=== PATIENT | female | born 1995 | race Two or more races ===

== ENCOUNTER 2018-07-09 08:38 | Outpatient (CLI) | payer OTHER ==
--- NOTE | 2018-07-09 15:05 | MRI Report ---
Reason: SLEEP DISORDER,MIGRAINE,NAUSEA,UNSPECIFIED CONVULS Procedure Date: 07/09/2018 Accession Number: [id number] / [id number] Procedure: MRI - Brain W/O CPT Code: FULL RESULT: EXAM: MRI BRAIN WITHOUT CONTRAST EXAM DATE: 07/09/2018 09:44 AM. CLINICAL HISTORY: SLEEP DISORDER,MIGRAINE,NAUSEA. COMPARISON: None. TECHNIQUE: Multiplanar, multisequence T1-weighted and fluid-sensitive MR sequences of the brain were performed. Sequences optimized for routine evaluation. Other: None. IV Contrast: None. FINDINGS: Brain Volume: Normal for age. Parenchyma/Dura: No mass, acute infarct or hemorrhage. No white matter lesions identified. Ventricles/Cisterns: No hydrocephalus. No abnormal extra-axial fluid collection or hemorrhage. Orbits: Symmetric and unremarkable. Sella Turcica: Unremarkable. IAC: Symmetric and unremarkable. Vasculature: Normal signal flow void is seen in the major arterial structures at the skull base. Sinuses: No acute appearing sinus disease. Bones: No focal pathologic appearing marrow signal changes. Other: None. IMPRESSION: 1. Normal brain MRI. [facility]
== END 2018-07-09 08:39 | disposition home or self-care (01) ==
LOC: DI 08:38
PROVIDERS: ATTEND Family Medicine
DX: G43.909 Migraine, unspecified, not intractable, without status migrainosus (principal); G47.9 Sleep disorder, unspecified; R11.0 Nausea; R56.9 Unspecified convulsions
CPT/HCPCS: 70551

== ENCOUNTER 2021-04-21 11:05 | Outpatient (CLI) | payer OTHER ==
[2021-04-21 11:51] VITALS: BP 91/64
--- NOTE | 2021-04-21 11:51 | SLEEP CARE CONSULTATION ---
Information from patient questionnaire entered by Nuvia Cherry. I have reviewed and concur with the information entered by Nuvia Cherry. This document represents the service I personally performed and the decisions made by me, Radha Perez ARNP. History of Present Illness Service Date and Time: 04/21/2021 1105 Reason for Visit: New patient Chief Complaint: reports: Insomnia, Unrefreshed sleep, Snoring, Excessive daytime sleepiness, Fatigue, Frequent awakenings at night Date of Onset: since 2012 Usual bedtime: 830 PM Time it takes to fall asleep: hours Snores at night: Yes (usually) Observed to quit breathing while asleep: No Sleeps alone due to snoring: No Number of times waking at night: several Reasons for waking at night: reports: Gasping for air, Pain, Other (noise, nightmares, bad feelings, thirsty, unknown reason) Toss, Turn, or Twitch while sleeping: Yes Recalls having dreams: Yes (50/50) Usually gets out of bed at: 3:30 - 4 am Feels refreshed in the morning: No Morning headache: Yes (meds needed; majority of days; hx of migraines) Sleepy or fatigued during the day: Yes Ever fallen asleep while driving: Yes (drowsy driving, no accidents) Takes day naps: Yes (daily, 30 mins) Dreams during day naps: No Prior sleep studies: Yes (inconclusive) Year and Where: 2012, 2013, 2014, 2015 Additional HPI information: I had the pleasure of seeing OUMAR GOYAL today regarding the possibility of her having a sleep disorder. Her current complaints are excessive daytime sleepiness, fatigue, frequent night awakenings, insomnia, snoring and unrefreshed. Patient states she has lots of sleep issues and come in because her PCP finally talked her into a sleep study. Patient has been taking lots of sleep aids, some working some do not. She states it takes hours for her to be able to get to sleep. She sleeps no more than about 3 hours nightly. She awakens with night terrors, panic attacks and is unable to go back to sleep. She takes a nap during the day with the children. Patient has a history of anxiety, depression, seizures due to epilepsy, depression and PTSD. 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 Patient is and lives in [place]. Have you smoked in the past 12 months: No Alcohol use: No Caffeine use: Yes Caffeine amount and frequency: alot Family History Family history of sleep disordered breathing: Yes (1.2 year old had sleep apnea) Family Hx Sleep Apnea: Father: Snoring, Sleep apnea - Untreated, Grandparent: Snoring, Sleep apnea - Untreated Allergies and Home Medications Drug allergies reviewed: Yes (Lidocaine) Home medication list reviewed: Yes Allergy and home medication list: Hydroxyzine HCL Tramadol Metacarbamol acetaminophen/butalbital/caffeine Nurtec Buspirone Topamax cetirizine Fluoxetine Propanolol Review of Systems Weight gain over past 5 years: 30 Cardiovascular: reports: palpitations Urinary: reports: incontinence Neurological: reports: headaches, seizure Psychiatric: reports: anxiety, depression, other (severe PTSD) Ear/Nose/Throat: reports: nasal congestion, sinus problems, dry mouth/throat, wisdom teeth removed. denies: tonsillectomy Endocrine: reports: sluggishness, excessive thirst Musculoskeletal: reports: joint pain, back pain, muscle pain or cramping Immunologic: reports: sneezing Physical Exam Blood Pressure: 91/64 Cuff size: wrist Heart Rate: 74 O2 Saturation: 98 Height: 5 ft 2.5 in Weight: 161 lb Body Mass Index: 29.0 BMI Classification: Overweight Neck circumference: 13 (inches) Mouth and throat: narrow oropharynx Soft palate: long Hard palate: normal Uvula: normal Uvula visualization: 100% Mallampati Class I Tongue: normal in size Tonsils: small Neck: normal w/o lymphadenopathy or thyromegaly Heart: regular rate and rhythm Lungs: clear bilaterally Impression and Plan 1. Suspected Obstructive Sleep Apnea-Hypopnea Syndrome, as suggested by a history of loud and irregular snoring, gasping or choking in sleep, morning headache, frequent awakening during the night, unrefreshed sleep, cognitive impairment, and excessive daytime sleepiness. Narrow oropharynx and obesity are common predisposing factors for obstructive sleep apnea-hypopnea syndrome. I recommend proceeding to polysomnography to confirm the diagnosis and to assess severity. If the patient has significant sleep disordered breathing, a manual CPAP titration study will also be performed to find the optimal treatment pressure. I informed the patient of what the sleep studies involve and after some discussion, obtained agreement to proceed. The pathophysiology of obstructive sleep apnea-hypopnea syndrome was discussed with the patient and health risks of cardiovascular and cerebrovascular disease if not treated. Risks of drowsy driving discussed in detail and patient advised to avoid long distance driving and to order puller at the first sign of drowsiness. Patient agreed to plan. * Schedule polysomnography +- manual CPAP titration study and return in 1-2 weeks after the study to discuss result and initiate therapy. * Avoid long distance driving or driving when feeling sleepy. * Avoid alcohol, sedative and muscle relaxant around bedtime. * Attempt to lose weight. * Review instructions provided by trained office staff on how to prepare for the sleep study. * Return for follow-up after sleep study completed. Counseling Topics: Weight loss health impact Visit Type: In Office Time Spent with Patient (minutes): 32 Provider Statement: I spent 100% of the Face to Face Visit with the patient with greater than 50% spent counseling the patient and coordination of care.
== END 2021-04-21 11:06 | disposition home or self-care (01) ==
LOC: SC 11:05
PROVIDERS: ATTEND Nurse Practitioner Family
DX: R06.83 Snoring (principal); R51.9 Headache, unspecified; G47.8 Other sleep disorders; R41.89 Other symptoms and signs involving cognitive functions and awareness; G47.10 Hypersomnia, unspecified
CPT/HCPCS: 99203; 99212